=== PATIENT | female | born 1980 | race Two or more races ===

== ENCOUNTER 2022-08-30 12:00 | Outpatient (REF) | payer MEDICAID, SELFPAY ==
--- NOTE | ~2022-08-30 | XR_ITS ---
EXAMINATION: XR CHEST CLINICAL INFORMATION: Persistent cough COMPARISON: None TECHNIQUE: 2 views of the chest were obtained. FINDINGS: Lungs are clear. No focal consolidation or mass. Normal pulmonary vascularity. No pleural effusion or pneumothorax. Normal heart size. No acute osseous abnormality. XR/XR chest 2V IMPRESSION: No acute pulmonary disease.
== END 2022-08-30 12:01 | disposition home or self-care (01) ==
LOC: HO.XRAY 12:00
PROVIDERS: PCP Registered Nurse; Visit Provider Registered Nurse
DX: R05.8 Other specified cough (principal)
CPT/HCPCS: 71046

== ENCOUNTER 2022-09-10 21:11 | Emergency (ER) | payer MEDICAID, SELFPAY ==
--- NOTE | 2022-09-10 | ECG_ITS ---
Test Reason : CHEST PAIN Blood Pressure : / mmHG Vent. Rate : 090 BPM Atrial Rate : 090 BPM P-R Int : 132 ms QRS Dur : 082 ms QT Int : 344 ms P-R-T Axes : 014 023 000 degrees QTc Int : 420 ms Normal sinus rhythm Normal ECG No previous ECGs available Referred By: Generic ED Physician Electronically Signed By:EBONI BROOKS MD
--- NOTE | ~2022-09-10 | XR_ITS ---
EXAMINATION: XR CHEST CLINICAL INFORMATION: Evaluate for pneumonia COMPARISON: 08/30/2022 TECHNIQUE: Frontal view of the chest was obtained. FINDINGS: No acute finding. No infiltrate. No effusion. The cardiac silhouette is within normal limits. The hilar structures do not appear pathologically enlarged. There is no effusion. XR/XR chest 1V IMPRESSION: No acute finding.
[2022-09-10 21:13] VITALS: BP 114/67; PULSE 95; RESP 20; TEMP 36.1; O2SAT 98; BMI 38.2
[2022-09-10 21:39] LABS: MANUAL DIFF FLAG NO
[2022-09-10 21:40] LABS: Basophils Absolute Auto 0.1 X10*3/uL (0.0-0.2); Basophils Percent Auto 0.7 % (0-2); Eosinophils Absolute Auto 0.4 X10*3/uL (0.0-0.4); Eosinophils Percent Auto 3.5 % (0-4); Hematocrit 38.6 % (37.0-47.0); Hemoglobin 13.5 g/dl (12.0-16.0); Imm Gran Abs Auto 0.02 X10*3/uL (0.00-0.03); Imm Gran Pct Auto 0.2 % (0.0-0.4); Lymphocytes Absolute Auto 3.7 X10*3/uL (1.2-4.9); Lymphocytes Percent Auto 34.6 % (20-40); Mean Corpuscular Hemoglobin 29.2 pg (27.0-33.0); Mean Corpuscular Volume 83.4 fL (80.0-98.0); Mean Platelet Volume 9.3 fL (9.4-12.3); Monocytes Percent Auto 8.9 % (2-11); Neutrophils Absolute Auto 5.6 x10*3/uL (2.0-8.3); Neutrophils Percent Auto 52.1 % (45-73); Platelet Count 357 X10*3/uL (160-400); Red Blood Count 4.63 X10*6/uL (4.20-5.50); Red Cell Distribution Width 13.1 % (11.0-16.0); White Blood Count 10.7 X10*3/uL (4.8-10.8)
[2022-09-10 21:44] VITALS: PULSE 96; RESP 17; O2SAT 97
--- NOTE | 2022-09-10 21:45 | PC.NURSE ---
pt resting on stretcher at this time, pt reports having a non-productive cough for two weeks and an asthma exacerbation
--- NOTE | 2022-09-10 21:50 | ED.ASTHMA ---
HPI - Asthma General Chief Complaint: Asthma Stated Complaint: coughing/chest pain Time Seen by Provider: 09/10/22 21:38 Source: patient Mode of arrival: ambulatory Limitations: no limitations History of Present Illness HPI Narrative: Patient comes to the emergency room complaining of cough. Patient states that she is asthmatic. Patient states that she used her inhaler prior to arrival. Patient moved 2 weeks ago from [place]. Patient needs a prescription for albuterol. Patient complaining of chest pain with coughing Related Data Previous Rx's Medication Instructions Recorded albuterol sulfate 90 mcg/actuation 2 puff inhalation QID PRN 09/10/22 aerosol inhaler shortness of breath or wheezing #8.5 grams benzonatate 100 mg capsule 100 mg PO TID PRN cough #10 caps 09/10/22 prednisone 50 mg tablet 50 mg PO DAILY #4 tabs 09/10/22 Allergies Allergy/AdvReac Type Severity Reaction Status Date / Time aspirin [ASA] Allergy Swelling Verified 09/10/22 21:19 kiwi Allergy Rash Verified 09/10/22 21:19 Penicillins Allergy Swelling Verified 09/10/22 21:19 shrimp Allergy Swelling Verified 09/10/22 21:19 Sulfa (Sulfonamide Allergy Rash Verified 09/10/22 21:19 Antibiotics) Review of Systems Review of Systems: Constitutional : No Weight loss, No Fever, No Chills, No Night Sweats, No Fatigue, No Malaise ENT/Mouth : No Hearing loss, No Ear Pain, No Nasal Congestion, No Sinus Pain, No Hoarseness, No sore throat, No Rhinorrhea, No Swallowing Difficulty Eyes: No Eye Pain, No Swelling, No Redness, No Foreign Body, No Discharge, No Vision Changes Cardiovascular : Complaining of chest pain with coughing. Denies palpitations, no orthopnea, no lower extremity edema Respiratory : Complaining of cough for 2 weeks, wheezing, intermittent shortness of breath Gastrointestinal : No Nausea, No Vomiting, No Diarrhea, No Constipation, No abdominal Pain, No Hematochezia, No Melena Genitourinary : no irregular bleeding, No Dysuria, No Urinary Frequency, No Hematuria, No Urinary Incontinence, No Urgency, No Flank Pain, No Urinary Flow Changes, No Hesitancy Musculoskeletal : No joint pain, No Myalgias, No Joint Swelling Skin : No Skin Lesions, No rash Neuro : No Weakness, No Numbness, No Paresthesias, No Loss of Consciousness, No Dizziness, No Headache Psych : No Anxiety/Panic, No Depression, No SI/HI/AH/VH, No Social Issues, Heme/Lymph: No Bruising, No Bleeding,No Lymphadenopathy Endocrine : No Polyuria, No Polydipsia, No Temperature Intolerance [facility] Past Medical History Medical History (Updated 09/10/22 @ 23:16 by Deidre Saldivar MD) Asthma Social History Social History Advance Directives: No Advance Directives Information Provided: No Physical Exam Vital Signs: Vital Signs: Last Vital Signs Temp 97.8 F 09/10/22 22:55 Pulse 83 09/10/22 22:55 Resp 18 09/10/22 22:55 BP 102/55 L 09/10/22 22:55 Pulse Ox 98 09/10/22 22:55 O2 Del Method 09/10/22 22:55 BMI result Body Mass Index 38.2 Const: Other: Appearance: Alert. Oriented X3. No acute distress. Well appearing Eyes: Pupils equal, round and reactive to light. ENT: Pharynx normal. Neck: Normal inspection. Neck supple. No lymph nodes noted. No crepitus CVS: Normal heart rate and rhythm. Pulses normal. Normal S1 and S2 Respiratory: No respiratory distress. Breath sounds normal. No Wheezing. No rales , coughs with deep breaths Abdomen: Soft and nontender. No rigidity. No distention. Skin: Skin warm and dry. Normal skin color. Normal skin turgor. Extremities: No lower extremity edema. No Lacerations. No Rash Neuro: Oriented X 3. No motor deficit. No sensory deficit. Moving all extremities. No slurred speech. CN 2 through 12 grossly intact Psych: calm, cooperative, normal affect Course Course Course Narrative: Patient receiving 1 dose of p.o. prednisone and Tessalon Perle -patient's labs and checks x-ray are unremarkable. Patient not wheezing, oxygen saturation 98% on room air. Medications Administered Discontinued Medications Generic Name Dose Route Start Last Admin Trade Name Freq PRN Reason Stop Dose Admin Benzonatate 100 mg 09/10/22 21:48 09/10/22 21:54 Benzonatate 100 Mg Capsule PO 09/10/22 21:49 100 mg ONCE ONE Administration Prednisone 60 mg 09/10/22 21:48 09/10/22 21:54 Prednisone 20 Mg Tablet PO 09/10/22 21:49 60 mg ONCE ONE Administration Medical Decision Making Medical Decision Making [facility] Narrative: Patient has a viral URI exacerbating her asthma. Patient tested negative for COVID and influenza. Differential Diagnosis Differential Diagnoses: The differential diagnosis associated with the presentation includes (Viral URI, COVID, influenza, asthma exacerbation) Lab Data [facility] Lab Attestation statement: I reviewed the patient's lab results. 09/10/22 21:33 09/10/22 21:33 Labs: Lab Results 09/10/22 09/10/22 09/10/22 Range/Units 21:33 21:33 21:33 WBC 10.7 (4.8-10.8) X10*3/uL RBC 4.63 (4.20-5.50) X10*6/uL Hgb 13.5 (12.0-16.0) g/dl Hct 38.6 (37.0-47.0) % MCV 83.4 (80.0-98.0) fL MCH 29.2 (27.0-33.0) pg MCHC 35.0 (31.0-35.0) g/dl RDW 13.1 (11.0-16.0) % Plt Count 357 (160-400) X10*3/uL MPV 9.3 L (9.4-12.3) fL Immature Gran % (Auto) 0.2 (0.0-0.4) % Neut % (Auto) 52.1 (45-73) % Lymph % (Auto) 34.6 (20-40) % Lamb % (Auto) 8.9 (2-11) % Eos % (Auto) 3.5 (0-4) % Baso % (Auto) 0.7 (0-2) % Lymph # (Auto) 3.7 (1.2-4.9) X10*3/uL Lamb # (Auto) 1.0 (0.1-1.2) X10*3/uL Eos # (Auto) 0.4 (0.0-0.4) X10*3/uL Baso # (Auto) 0.1 (0.0-0.2) X10*3/uL Abs Immat Gran (auto) 0.02 (0.00-0.03) X10*3/uL Absolute Neuts (auto) 5.6 (2.0-8.3) x10*3/uL Absolute Nucleated RBC 0.000 (0.0-0.012) X10*3/uL Nucleated RBC % (auto) 0.0 (0.0-0.2) /100WBC Sodium (135-145) mmol/L Potassium (3.3-5.1) mmol/L Chloride (96-108) mmol/L Carbon Dioxide (22-29) mmol/L Anion Gap (12-20) BUN (9-16) mg/dL Creatinine (0.5-1.4) mg/dL Estim Creat Clear Calc Estimated GFR Random Glucose (60-115) mg/dL Calcium (8.4-10.2) mg/dL Troponin I High Sens (<3.5-17.0) ng/L COVID-19 ([facility]) Negative (Negative) COVID-19 Clin Com See Note Influenza Type A ([facility]) Negative (Negative) Influenza Type B ([facility]) Negative (Negative) Influenza A & B Note See Note 09/10/22 09/10/22 Range/Units 21:33 21:34 WBC (4.8-10.8) X10*3/uL RBC (4.20-5.50) X10*6/uL Hgb (12.0-16.0) g/dl Hct (37.0-47.0) % MCV (80.0-98.0) fL MCH (27.0-33.0) pg MCHC (31.0-35.0) g/dl RDW (11.0-16.0) % Plt Count (160-400) X10*3/uL MPV (9.4-12.3) fL Immature Gran % (Auto) (0.0-0.4) % Neut % (Auto) (45-73) % Lymph % (Auto) (20-40) % Lamb % (Auto) (2-11) % Eos % (Auto) (0-4) % Baso % (Auto) (0-2) % Lymph # (Auto) (1.2-4.9) X10*3/uL Lamb # (Auto) (0.1-1.2) X10*3/uL Eos # (Auto) (0.0-0.4) X10*3/uL Baso # (Auto) (0.0-0.2) X10*3/uL Abs Immat Gran (auto) (0.00-0.03) X10*3/uL Absolute Neuts (auto) (2.0-8.3) x10*3/uL Absolute Nucleated RBC (0.0-0.012) X10*3/uL Nucleated RBC % (auto) (0.0-0.2) /100WBC Sodium 139 (135-145) mmol/L Potassium 3.6 (3.3-5.1) mmol/L Chloride 101 (96-108) mmol/L Carbon Dioxide 28 (22-29) mmol/L Anion Gap 14 (12-20) BUN 7 L (9-16) mg/dL Creatinine 0.81 (0.5-1.4) mg/dL Estim Creat Clear Calc 88.8 Estimated GFR > 60 Random Glucose 274 H (60-115) mg/dL Calcium 9.6 (8.4-10.2) mg/dL Troponin I High Sens < 3.5 (<3.5-17.0) ng/L COVID-19 ([facility]) (Negative) COVID-19 Clin Com Influenza Type A ([facility]) (Negative) Influenza Type B ([facility]) (Negative) Influenza A & B Note Independent Interpretation I performed an independent interpretation of an: Plain X-Ray (My interpretation of chest x-ray: Unremarkable) Radiology Impression Discussion of test interpretation with radiology: I have reviewed the radiologist's reading. Radiologist Impression: FINDINGS: No acute finding. No infiltrate. No effusion. The cardiac silhouette is within normal limits. The hilar structures do not appear pathologically enlarged. There is no effusion. XR/XR chest 1V IMPRESSION: No acute finding. ? Discharge Plan Discharge Clinical Impression: Viral URI, Asthma Patient Disposition: Home, Self-Care Instructions: Asthma (ED) Additional Instructions: Please follow-up with your primary care physician tomorrow. If you have any worsening or new symptoms, please return to the emergency room or call 911 Prescriptions: New albuterol sulfate 90 mcg/actuation HFA aerosol inhaler 2 puff inhalation QID PRN (Reason: shortness of breath or wheezing) Qty: 8.5 0RF prednisone 50 mg tablet 50 mg PO DAILY Qty: 4 0RF benzonatate 100 mg capsule 100 mg PO TID PRN (Reason: cough) Qty: 10 0RF
[2022-09-10 21:54] LABS: Anion Gap 14 (12-20); Blood Urea Nitrogen 7 mg/dL (9-16); Calcium 9.6 mg/dL (8.4-10.2); Carbon Dioxide 28 mmol/L (22-29); Chloride 101 mmol/L (96-108); Creatinine Clr Calc Pharmacy 88.8; Estimated Glomerular Filt Rate > 60; Glucose Random 274 mg/dL (60-115); Potassium 3.6 mmol/L (3.3-5.1); Sodium 139 mmol/L (135-145)
[2022-09-10] MEDS: Benzonatate 100 MG CAPSULE PO (21:54)
[2022-09-10] MEDS: predniSONE 20 MG TABLET 60 MG PO (21:54)
[2022-09-10 21:55] LABS: COVID-19 Test Negative (Negative); IDNOW Serial# 55D5AD1C
[2022-09-10 22:03] LABS: Troponin-I High Sensitivity < 3.5 ng/L (<3.5-17.0)
[2022-09-10 22:42] LABS: IDNOW Serial# 16C4AD1C; Influenza A Negative (Negative); Influenza B2 Negative (Negative)
[2022-09-10 22:55] VITALS: BP 102/55; PULSE 83; RESP 18; TEMP 36.6; O2SAT 98
== END 2022-09-10 23:38 | disposition home or self-care (01) ==
PROVIDERS: Emergency Provider Emergency Medicine
DX: J45.909 Unspecified asthma, uncomplicated (principal); J06.9 Acute upper respiratory infection, unspecified; R05.9 Cough, unspecified; R07.89 Other chest pain; Z20.822 Contact with and (suspected) exposure to COVID-19; Z20.828 Contact with and (suspected) exposure to other viral communicable diseases; Z79.899 Other long term (current) drug therapy
CPT/HCPCS: 36415; 71045; 80048; 84484; 85025; 87502; 87635; 93005; 99284

== ENCOUNTER 2023-02-03 14:28 | Emergency (ER) | payer MEDICAID, SELFPAY ==
--- NOTE | ~2023-02-03 | CT_ITS ---
EXAMINATION: CT ABDOMEN AND PELVIS WITHOUT CONTRAST CLINICAL INFORMATION: Lower abdominal pain. Rule out colitis. COMPARISON: None available. TECHNIQUE: Multidetector volumetric imaging was performed from the superior aspect of the liver through the pubic symphysis. Sagittal and coronal reformatted images were obtained on the technologist's workstation. This CT examination was performed using dose optimization techniques as appropriate, variously including the following: *Automated exposure control *Adjustment of mA and/or kV according to patient size (this includes techniques or standardized protocols for targeted exams where dose is matched to indication/reason for exam; i.e. extremities or head) *Use of iterative reconstruction technique DLP: 474 mGy-cm FINDINGS: LUNG BASES: The visualized lung bases are unremarkable. LIVER, GALLBLADDER, AND BILIARY TREE: The liver is normal in size, shape, and attenuation. No focal hepatic lesion or biliary ductal dilatation is present. The gallbladder is unremarkable with no evidence of radiopaque gallstones, gallbladder wall thickening, or obvious pericholecystic inflammatory changes. PANCREAS: Unremarkable. SPLEEN: Unremarkable. ADRENAL GLANDS: Unremarkable. KIDNEYS AND URETERS: The kidneys are normal in size, shape, and attenuation. No hydronephrosis, hydroureter, or calculi seen. No perinephric stranding. BLADDER: Underdistended however grossly unremarkable. GASTROINTESTINAL TRACT: The stomach is partially distended and grossly unremarkable. No abnormal small bowel dilatation. An appendix is not clearly visualized however there are no inflammatory changes in the expected location of the appendix. Colon is normal in caliber. There is no evidence of colonic wall thickening or pericolonic fat stranding. Moderate to large stool burden is noted in the colon. PERITONEAL CAVITY: There is no evidence of free intraperitoneal air or fluid. ABDOMINAL WALL: No significant hernia is appreciated. LYMPH NODES: No evidence of pathologically enlarged lymph nodes. VASCULAR: The aortoiliac vessels are normal in caliber. PELVIC VISCERA: Unremarkable CT appearance of the uterus and ovaries/adnexa. The uterus is mildly deviated to the right. Small phleboliths are noted in the pelvis OSSEOUS STRUCTURES: No acute or suspicious osseous lesion is noted. Small sclerotic density in the left humeral head posteromedially has nonaggressive appearance and likely represents a bone island. CT/CT abdomen pelvis wo IV con IMPRESSION: No CT evidence of colitis. No evidence of abnormal bowel dilatation or bowel obstruction. Moderate to large stool burden in the colon. Fleischner guidelines were followed.
[2023-02-03 15:22] VITALS: BP 129/78; PULSE 78; RESP 18; TEMP 36.9; O2SAT 98; BMI 24.2
--- NOTE | 2023-02-03 15:28 | ED_ITS ---
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 Pain started about 12 hours ago when she woke up from sleep this morning, the pain has been constant since morning mostly in the epigastric area but also patient is complaining of constant pain in her lower abdomen, associated with nonbloody vomiting x3, patient had a normal bowel movement this morning with no blood in the stool or black stool, no dysuria, no frequency urination, no blood in the urine. Patient declined any past history of intra-abdominal surgery. Declined any history of alcohol abuse. Related Data Previous Rx's Medication Instructions Recorded albuterol sulfate 90 mcg/actuation 2 puff inhalation QID PRN 09/10/22 aerosol inhaler shortness of breath or wheezing #8.5 grams benzonatate 100 mg capsule 100 mg PO TID PRN cough #10 caps 09/10/22 prednisone 50 mg tablet 50 mg PO DAILY #4 tabs 09/10/22 omeprazole 40 mg capsule,delayed 40 mg PO DAILY #20 caps 02/04/23 release polyethylene glycol 3350 17 17 g PO DAILY #119 grams 02/04/23 gram/dose oral powder (Miralax) Allergies Allergy/AdvReac Type Severity Reaction Status Date / Time aspirin [ASA] Allergy Swelling Verified 09/10/22 21:19 kiwi Allergy Rash Verified 09/10/22 21:19 Penicillins Allergy Swelling Verified 09/10/22 21:19 shrimp Allergy Swelling Verified 09/10/22 21:19 Sulfa (Sulfonamide Allergy Rash Verified 09/10/22 21:19 Antibiotics) Review of Systems Review of Systems All other systems are reviewed and are negative Constitutional: Reports as per HPI and Reports no additional constitutional complaints Eyes: Reports as per HPI and Reports no additional eye complaints Reports system reviewed and no additional complaints, except as documented Cardiovascular: Reports as per HPI and Reports no additional cardiovascular complaints Respiratory: Reports as per HPI and Reports no additional respiratory complaints Gastrointestinal: Reports as per HPI and Reports no additional gastrointestinal complaints Genitourinary: Reports no additional female genitourinary complaints Musculoskeletal: Reports no additional musculoskeletal complaints Skin/Breast: Reports system reviewed and no additional complaints, except as docu Psychiatric: Reports no additional psychiatric complaints Endocrine: Reports no additional endocrine complaints Hematologic/Lymphatic: Reports no additional hematologic/lymphatic complaints Allergic/Immunologic: Reports no additional allergic/immunologic complaints Reports system reviewed and no additional complaints, except as documented and Reports Abnormal speech present [facility] Past Medical History Medical History Asthma Social History Social History Advance Directives: No Advance Directives Information Provided: Yes Physical Exam ED Vital Signs: Vital Signs - 24 hr 02/03/23 15:22 02/03/23 22:29 Temperature 98.4 F 98.2 F Pulse Rate 78 65 Respiratory Rate 18 18 Blood Pressure 129/78 124/64 Pulse Oximetry 98 99 Oxygen Delivery Method Room Air Room Air BMI result Body Mass Index 24.2 Vital signs have been reviewed as appeared to be correct. Blood pressure normal. Heart rate normal. Respiration rate normal. Temperature normal. Oxygen saturation normal. Appearance: Alert. Oriented X3. No acute distress. Head: Normal external exam. Normocephalic. Atraumatic. No Kelly signs noted. No raccoon eyes noted Eyes: PERRLA. EOMI. Conjunctiva and sclera normal. Eyelids normal. ENT: TM's Normal. Pharynx normal. Uvula midline. Moist mucous membranes. No trismus noted. No drooling noted. No muffled voice noted. Neck: Normal inspection. Neck supple. FROM. No adenopathy. Thyroid Normal. No meningeal signs. No neck mass noted. CVS: Normal heart rate and rhythm. Heart sound normal. No murmurs noted. Pulses normal throughout. Respiratory: No respiratory distress. Painless inspiration. Breath sounds normal. No wheezes/rales/rhonchi noted. Chest nontender. No accessory muscle usage noted or decreased air movement noted. Abdomen: Soft, epigastric tenderness, no rebound tenderness, no guarding. Bowel sounds normal in all 4 quadrants. No distention noted. No organomegaly noted. No visible injury noted. Back: No CVA tenderness. Full range of motion noted. Skin: Skin warm and dry. Normal skin color. Normal skin turgor. No rashes/lesions/lacerations noted. Extremities: No lower extremity edema. Extremities exhibit normal range of motion. Extremities nontender. Neuro: Oriented X 3. Cranial nerve exam: II-XII are grossly intact No motor deficit. No sensory deficit. Reflexes normal. Course Course Course Narrative: RME - 48 yo Divehi speaking female with history of anxiety and depression who presents to the ER for evaluation of nausea and vomiting x3 that started this morning along with epigastric pain. No diarrhea. She reports subjective fever and chills today along with generalized weakness. Abd very soft with mild diffuse tenderness to deep palpation, no rebound or guarding. Plan: basic labs, anti-emetics, PO trial Medical Decision Making Medical Decision Making [facility] Narrative: 42-year-old female came in for evaluation of abdominal pain, patient found with mild leukocytosis due to acute gastritis, CT did not clearly visualize appendix patient's tenderness is localized to the epigastric area. Differential Diagnosis Differential Diagnoses: The differential diagnosis associated with the presentation includes (Acute appendicitis, colitis, diverticulitis, complicated hernia, pancreatitis, cholecystitis, gastritis, constipation, severe anemia, electrolyte abnormalities.) Lab Data [facility] Lab Attestation statement: I reviewed the patient's lab results. 02/03/23 16:02 02/03/23 16:02 Labs: Lab Results 02/03/23 02/03/23 02/03/23 Range/Units 16:00 16:00 16:02 WBC 13.4 H (4.8-10.8) X10*3/uL RBC 4.71 (4.20-5.50) X10*6/uL Hgb 13.7 (12.0-16.0) g/dl Hct 39.8 (37.0-47.0) % MCV 84.5 (80.0-98.0) fL MCH 29.1 (27.0-33.0) pg MCHC 34.4 (31.0-35.0) g/dl RDW 13.2 (11.0-16.0) % Plt Count 328 (160-400) X10*3/uL MPV 9.4 (9.4-12.3) fL Immature Gran % (Auto) 0.4 (0.0-0.4) % Neut % (Auto) 60.3 (45-73) % Lymph % (Auto) 25.2 (20-40) % Mcclain % (Auto) 5.6 (2-11) % Eos % (Auto) 7.8 H (0-4) % Baso % (Auto) 0.7 (0-2) % Lymph # (Auto) 3.4 (1.2-4.9) X10*3/uL Mcclain # (Auto) 0.8 (0.1-1.2) X10*3/uL Eos # (Auto) 1.1 H (0.0-0.4) X10*3/uL Baso # (Auto) 0.1 (0.0-0.2) X10*3/uL Abs Immat Gran (auto) 0.05 H (0.00-0.03) X10*3/uL Absolute Neuts (auto) 8.1 (2.0-8.3) x10*3/uL Absolute Nucleated RBC 0.000 (0.0-0.012) X10*3/uL Nucleated RBC % (auto) 0.0 (0.0-0.2) /100WBC Sodium (135-145) mmol/L Potassium (3.3-5.1) mmol/L Chloride (96-108) mmol/L Carbon Dioxide (22-29) mmol/L Anion Gap (12-20) BUN (9-16) mg/dL Creatinine (0.5-1.4) mg/dL Estim Creat Clear Calc Estimated GFR Random Glucose (60-115) mg/dL Calcium (8.4-10.2) mg/dL Magnesium (1.6-2.6) mg/dL Total Bilirubin (0.0-1.0) mg/dL Direct Bilirubin (0.0-0.5) mg/dL AST (5-31) U/L ALT (0-31) U/L Alkaline Phosphatase (39-117) U/L Total Protein (6.5-8.0) g/dL Albumin (3.5-5.0) g/dL Lipase (8-78) U/L Urine Color Yellow Urine Appearance Clear Urine pH 6.0 (5.0-9.0) Ur Specific Vermillion >= 1.030 H (1.005-1.025) Urine Protein Negative (Neg-Trace) mg/dL Urine Glucose (UA) >=1000 H (Negative) mg/dL Urine Ketones Negative (Negative) mg/dL Urine Blood Trace H (Negative) Urine Nitrite Negative (Negative) Ur Leukocyte Esterase Small (1+) H (Negative) Urine RBC 0-2 (0-2) /HPF Urine WBC 21-50 H (0-5) /HPF Ur Squamous Epith Cells 6-10 (0-2) /HPF Urine Bacteria 2+ (None Seen) Hyaline Casts 0-2 (0-2) /LPF Urine Test NEGATIVE (NEGATIVE) 02/03/23 Range/Units 16:02 WBC (4.8-10.8) X10*3/uL RBC (4.20-5.50) X10*6/uL Hgb (12.0-16.0) g/dl Hct (37.0-47.0) % MCV (80.0-98.0) fL MCH (27.0-33.0) pg MCHC (31.0-35.0) g/dl RDW (11.0-16.0) % Plt Count (160-400) X10*3/uL MPV (9.4-12.3) fL Immature Gran % (Auto) (0.0-0.4) % Neut % (Auto) (45-73) % Lymph % (Auto) (20-40) % Mcclain % (Auto) (2-11) % Eos % (Auto) (0-4) % Baso % (Auto) (0-2) % Lymph # (Auto) (1.2-4.9) X10*3/uL Mcclain # (Auto) (0.1-1.2) X10*3/uL Eos # (Auto) (0.0-0.4) X10*3/uL Baso # (Auto) (0.0-0.2) X10*3/uL Abs Immat Gran (auto) (0.00-0.03) X10*3/uL Absolute Neuts (auto) (2.0-8.3) x10*3/uL Absolute Nucleated RBC (0.0-0.012) X10*3/uL Nucleated RBC % (auto) (0.0-0.2) /100WBC Sodium 142 (135-145) mmol/L Potassium 4.1 (3.3-5.1) mmol/L Chloride 107 (96-108) mmol/L Carbon Dioxide 26 (22-29) mmol/L Anion Gap 13 (12-20) BUN 17 H (9-16) mg/dL Creatinine 0.65 (0.5-1.4) mg/dL Estim Creat Clear Calc 86.8 Estimated GFR > 60 Random Glucose 179 H (60-115) mg/dL Calcium 10.0 (8.4-10.2) mg/dL Magnesium 2.0 (1.6-2.6) mg/dL Total Bilirubin 0.3 (0.0-1.0) mg/dL Direct Bilirubin 0.1 (0.0-0.5) mg/dL AST 14 (5-31) U/L ALT 12 (0-31) U/L Alkaline Phosphatase 93 (39-117) U/L Total Protein 6.8 (6.5-8.0) g/dL Albumin 4.1 (3.5-5.0) g/dL Lipase 15 (8-78) U/L Urine Color Urine Appearance Urine pH (5.0-9.0) Ur Specific Vermillion (1.005-1.025) Urine Protein (Neg-Trace) mg/dL Urine Glucose (UA) (Negative) mg/dL Urine Ketones (Negative) mg/dL Urine Blood (Negative) Urine Nitrite (Negative) Ur Leukocyte Esterase (Negative) Urine RBC (0-2) /HPF Urine WBC (0-5) /HPF Ur Squamous Epith Cells (0-2) /HPF Urine Bacteria (None Seen) Hyaline Casts (0-2) /LPF Urine Test (NEGATIVE) Independent Interpretation I performed an independent interpretation of an: CT Scan (Abdomen and pelvis: No acute appendicitis, constipation.) Radiology Impression Discussion of test interpretation with radiology: I have reviewed the radiolog ist's reading. Medications Administered Discontinued Medications Generic Name Dose Route Start Last Admin Trade Name Freq PRN Reason Stop Dose Admin Al Hydroxide/Mg Hydroxide 30 ml 02/03/23 22:46 02/04/23 00:06 Magnesium Hydrox/Alum Hydrox 30 Ml Oral.Susp PO 02/03/23 22:47 30 ml ONCE ONE Administration Famotidine 20 mg 02/03/23 22:46 02/04/23 00:11 Famotidine/Pf 20 Mg/2 Ml Vial IVPUSH 02/03/23 22:47 20 mg ONCE ONE Administration Ondansetron HCl 4 mg 02/03/23 22:46 02/04/23 00:11 Ondansetron Hcl 4 Mg/2 Ml Vial IVPUSH 02/03/23 22:47 4 mg ONCE ONE Administration Discharge Plan Discharge Clinical Impression: Constipation, Gastritis Patient Disposition: Home, Self-Care Instructions: Gastritis (ED) Prescriptions: New omeprazole 40 mg capsule,delayed release(DR/EC) 40 mg PO DAILY Qty: 20 0RF polyethylene glycol 3350 [Miralax] 17 gram/dose powder 17 g PO DAILY Qty: 119 0RF No Action albuterol sulfate 90 mcg/actuation HFA aerosol inhaler 2 puff inhalation QID PRN (Reason: shortness of breath or wheezing) Qty: 8.5 0RF prednisone 50 mg tablet 50 mg PO DAILY Qty: 4 0RF benzonatate 100 mg capsule 100 mg PO TID PRN (Reason: cough) Qty: 10 0RF Referrals: Tiarra Lobo MD [Physician] - Juana Christine MD [Primary Care Provider] -
[2023-02-03 16:06] LABS: MANUAL DIFF FLAG NO
[2023-02-03 16:08] LABS: Basophils Absolute Auto 0.1 X10*3/uL (0.0-0.2); Basophils Percent Auto 0.7 % (0-2); Eosinophils Absolute Auto 1.1 X10*3/uL (0.0-0.4); Eosinophils Percent Auto 7.8 % (0-4); Hematocrit 39.8 % (37.0-47.0); Hemoglobin 13.7 g/dl (12.0-16.0); Imm Gran Abs Auto 0.05 X10*3/uL (0.00-0.03); Imm Gran Pct Auto 0.4 % (0.0-0.4); Lymphocytes Absolute Auto 3.4 X10*3/uL (1.2-4.9); Lymphocytes Percent Auto 25.2 % (20-40); Mean Corpuscular HGB Conc 34.4 g/dl (31.0-35.0); Mean Corpuscular Hemoglobin 29.1 pg (27.0-33.0); Mean Corpuscular Volume 84.5 fL (80.0-98.0); Mean Platelet Volume 9.4 fL (9.4-12.3); Monocytes Absolute Auto 0.8 X10*3/uL (0.1-1.2); Monocytes Percent Auto 5.6 % (2-11); Neutrophils Absolute Auto 8.1 x10*3/uL (2.0-8.3); Neutrophils Percent Auto 60.3 % (45-73); Platelet Count 328 X10*3/uL (160-400); Red Blood Count 4.71 X10*6/uL (4.20-5.50); Red Cell Distribution Width 13.2 % (11.0-16.0); White Blood Count 13.4 X10*3/uL (4.8-10.8)
[2023-02-03 16:09] LABS: Appearance Urine Clear; Color Urine Yellow; Glucose Urine UA >=1000 mg/dL (Negative); Leukocyte Esterase Urine Small (1+) (Negative); Nitrite Urine Negative (Negative); Specific Gravity - Urine >= 1.030 (1.005-1.025); UMIC TRIGGER UACC YES; UPreg QC Valid YES; Urine Blood Trace (Negative); Urine Ketones Negative (Negative); Urine Pregnancy NEGATIVE (NEGATIVE); Urine Protein Negative (Neg-Trace)
[2023-02-03 16:14] LABS: Bacteria Urine 2+ (None Seen); Hyaline Casts Urine 0-2 /LPF (0-2); RBC Urine 0-2 /HPF (0-2); UACC Culture Trigger YES; WBC Urine 21-50 /HPF (0-5)
[2023-02-03 16:23] LABS: Alanine Aminotransferase 12 U/L (0-31); Albumin Level 4.1 g/dL (3.5-5.0); Alkaline Phosphatase 93 U/L (39-117); Anion Gap 13 (12-20); Aspartate Amino Transferase 14 U/L (5-31); Bilirubin Direct 0.1 mg/dL (0.0-0.5); Bilirubin Total 0.3 mg/dL (0.0-1.0); Blood Urea Nitrogen 17 mg/dL (9-16); Carbon Dioxide 26 mmol/L (22-29); Chloride 107 mmol/L (96-108); Creatinine Clr Calc Pharmacy 86.8; Estimated Glomerular Filt Rate > 60; Glucose Random 179 mg/dL (60-115); Lipase 15 U/L (8-78); Potassium 4.1 mmol/L (3.3-5.1); Sodium 142 mmol/L (135-145); Total Protein 6.8 g/dL (6.5-8.0)
[2023-02-03 22:29] VITALS: BP 124/64; PULSE 65; RESP 18; TEMP 36.8; O2SAT 99
[2023-02-04] VITALS: BP 120/63; PULSE 66; RESP 16
[2023-02-04] MEDS: Magnesium Hydrox/Alum Hydrox 30 ML ORAL.SUSP PO (00:06)
[2023-02-04] MEDS: Famotidine/PF 20 MG/2 ML VIAL IVPUSH (00:11)
[2023-02-04] MEDS: ondansetron HCL 4 MG/2 ML VIAL IVPUSH (00:11)
== END 2023-02-04 01:43 | disposition home or self-care (01) ==
PROVIDERS: Physician Assistant; Emergency Provider Emergency Medicine; PCP Internal Medicine
DX: K29.70 Gastritis, unspecified, without bleeding (principal); K59.00 Constipation, unspecified; R11.2 Nausea with vomiting, unspecified; R10.13 Epigastric pain
CPT/HCPCS: 36415; 74176; 80048; 80076; 81001; 81025; 83690; 83735; 85025; 87086; 87147; 96374; 96375; 99283; 99284; J2405

== ENCOUNTER 2023-05-25 16:33 | Outpatient (REF) | payer MEDICAID, SELFPAY ==
[2023-05-25 17:31] LABS: Appearance Urine Clear; Color Urine Yellow; Glucose Urine UA >=1000 mg/dL (Negative); Leukocyte Esterase Urine Trace (Negative); Nitrite Urine Negative (Negative); Specific Gravity - Urine >= 1.030 (1.005-1.025); UMIC TRIGGER UA YES; Urine Blood Moderate (2+) (Negative); Urine Ketones Trace mg/dL (Negative); Urine Protein Negative (Neg-Trace)
[2023-05-25 18:02] LABS: Bacteria Urine 2+ (None Seen); Hyaline Casts Urine 0-2 /LPF (0-2); RBC Urine 0-2 /HPF (0-2)
== END 2023-05-25 16:34 | disposition home or self-care (01) ==
LOC: HO.HHCL 16:33
PROVIDERS: Visit Provider Nurse Practitioner Family
DX: E11.9 Type 2 diabetes mellitus without complications (principal)
CPT/HCPCS: 81001

== ENCOUNTER 2023-07-04 15:00 | Outpatient (REF) | payer MEDICAID, SELFPAY ==
[2023-07-04 16:44] LABS: HCG Quantitative < 2 mIU/mL
[2023-07-04 16:53] LABS: Creatinine Urine 14.11 mg/dL; Microalbumin Urine < 5.0 mg/L
== END 2023-07-04 15:01 | disposition home or self-care (01) ==
LOC: HO.HHCL 15:00
PROVIDERS: Visit Provider Nurse Practitioner Family
DX: E11.9 Type 2 diabetes mellitus without complications (principal); N92.6 Irregular menstruation, unspecified
CPT/HCPCS: 36415; 82570; 84702

== ENCOUNTER → 2023-08-02 12:15 | Outpatient (BNV) | payer MEDICAID, SELFPAY | PROVIDERS: PCP Nurse Practitioner Family; Visit Provider Radiology Diagnostic Radiology | DX: Z12.31 Encounter for screening mammogram for malignant neoplasm of breast (principal) | CPT/HCPCS: 77063; 77067 ==

== ENCOUNTER 2023-08-02 12:44 | Outpatient (REF) | payer MEDICAID, SELFPAY ==
--- NOTE | ~2023-08-02 | MM_ITS ---
EXAMINATION: MM SCREENING DIGITAL BREAST TOMOSYNTHESIS, BILATERAL CLINICAL INFORMATION: Screening. Asymptomatic. COMPARISON: Mammography: Baseline exam. TECHNIQUE: Digital breast tomosynthesis is performed in both the craniocaudal and mediolateral oblique views along with computer-aided detection (CAD). Synthesized 2D images are generated from the tomosynthesis. An extra left MLO was obtained. FINDINGS: There are scattered areas of fibroglandular density (ACR BI-RADS breast composition Category b). There are no suspicious masses, suspicious grouped calcifications, or areas of architectural distortion in either breast. The parenchymal pattern is stable from prior exams. There are no skin or axillary changes. MM/MM tomosynthesis screening BI IMPRESSION: No mammographic evidence of malignancy. ASSESSMENT: BI-RADS BI-RADS 1 - Negative RECOMMENDATION: Routine annual mammography screening. 1 year F/U This examination should not preclude the clinical evaluation of a suspicious palpable abnormality. This patient's information was entered into a reminder system with a target due date for their next mammogram.
== END 2023-08-02 12:45 | disposition home or self-care (01) ==
LOC: HO.MAMMO 12:44
PROVIDERS: PCP Nurse Practitioner Family; Visit Provider Nurse Practitioner Family
DX: Z12.31 Encounter for screening mammogram for malignant neoplasm of breast (principal)
CPT/HCPCS: 77063; 77067

== ENCOUNTER 2024-02-25 15:53 | Outpatient (REF) | payer MEDICAID, SELFPAY ==
[2024-02-25 18:19] LABS: Cholesterol 186 mg/dL (<200); HDL Cholesterol 65 mg/dL (>40); LDL Cholesterol Calculated 105 mg/dL (<100); Triglycerides 81 mg/dL (<150)
[2024-02-26 06:26] LABS: Estimated Average Glucose 105 mg/dL; Hemoglobin A1c % 5.3 % (<6.0)
== END 2024-02-25 15:54 | disposition home or self-care (01) ==
LOC: HO.HHCL 15:53
PROVIDERS: Visit Provider Nurse Practitioner Family
DX: E11.9 Type 2 diabetes mellitus without complications (principal); E78.00 Pure hypercholesterolemia, unspecified
CPT/HCPCS: 36415; 80061; 83036

== ENCOUNTER 2024-05-30 11:55 | Outpatient (REF) | payer MEDICAID, SELFPAY ==
[2024-05-30 13:51] LABS: HCG Quantitative < 2 mIU/mL
== END 2024-05-30 11:56 | disposition home or self-care (01) ==
LOC: HO.HHCL 11:55
PROVIDERS: Visit Provider Emergency Medicine
DX: N92.6 Irregular menstruation, unspecified (principal)
CPT/HCPCS: 36415; 84702

== ENCOUNTER 2024-06-07 18:33 | Emergency (ER) | payer MEDICAID, SELFPAY ==
[2024-06-07 18:42] VITALS: BP 120/68; PULSE 91; O2SAT 98
[2024-06-07 18:56] VITALS: BP 112/71; PULSE 102; RESP 16; TEMP 36.6; O2SAT 93; BMI 24.4
--- NOTE | 2024-06-07 19:12 | ED.ABDPAIN ---
HPI - Abdominal Pain General Chief Complaint: Abdominal Pain Stated Complaint: l sided abd pain Time Seen by Provider: 06/07/24 21:20 Source: patient Mode of arrival: ambulatory Limitations: no limitations History of Present Illness ED Provider: olivia HATFIELD narrative: Patient's history of chronic constipation comes here for lower abdominal pain thinking she is had a bowel movement earlier today also complaining of nausea and vomited 2 times patient was seen by PCP on 05/30 for bronchitis and was given prednisone Zithromax labs were done prior to my evaluation which showed serum HCG negative no fever no chills Related Data Previous Rx's ?Medication ?Instructions ?Recorded albuterol sulfate 90 mcg/actuation 2 puff inhalation QID PRN 09/10/22 aerosol inhaler shortness of breath or wheezing #8.5 grams benzonatate 100 mg capsule 100 mg PO TID PRN cough #10 caps 09/10/22 prednisone 50 mg tablet 50 mg PO DAILY #4 tabs 09/10/22 omeprazole 40 mg capsule,delayed 40 mg PO DAILY #20 caps 02/04/23 release polyethylene glycol 3350 17 17 g PO DAILY #119 grams 02/04/23 gram/dose oral powder (Miralax) Allergies Allergy/AdvReac Type Severity Reaction Status Date / Time aspirin [ASA] Allergy Swelling Verified 09/10/22 21:19 iodine Allergy Rash Verified 06/07/24 19:12 kiwi Allergy Rash Verified 09/10/22 21:19 NSAIDS (Non-Steroidal Allergy Rash Verified 06/07/24 19:12 Anti-Inflamma Penicillins Allergy Swelling Verified 09/10/22 21:19 shrimp Allergy Swelling Verified 09/10/22 21:19 Sulfa (Sulfonamide Allergy Rash Verified 09/10/22 21:19 Antibiotics) Review of Systems Review of Systems Yes all other systems are reviewed and are negative PMF Past Medical History Medical History Asthma Social History Social History Smoked in Last 30 Days: No Use of substances other than those prescribed or required for medical reasons: No Advance Directives: No Advance Directives Information Provided: No Physical Exam ED Vital Signs: Vital Signs - 24 hr 06/07/24 18:56 06/07/24 23:32 Temperature 98 F 0 F L Pulse Rate 102 H 0 L Respiratory Rate 16 0 L Blood Pressure 112/71 00/00 L Pulse Oximetry 93 0 L Oxygen Delivery Method Room Air BMI result Body Mass Index 24.4 Appearance: Alert. Oriented X3. No acute distress. Eyes: No pallor or icterus ENT: Pharynx normal. Oral Mucosa moist Neck: Normal inspection. Neck supple. CVS: Normal heart rate and rhythm. Pulses normal. Respiratory: No respiratory distress. Equal air entry bilateral, no wheezing/rales/rhonchi Abdomen: Soft and mild diffuse tenderness no rebound tenderness or guarding Bowel sounds are present, no mass palpable, no CVA tenderness Skin: Skin warm and dry. Normal skin color. Normal skin turgor. Extremities: No lower extremity edema. No calf tenderness Neuro: Oriented X 3. Course Course Course Narrative: This is a Rapid Medical Examination (RME) performed by Joanna Rodas PA-C in triage. Full HPI, ROS, assessment and treatment plan per primary provider in the Main ED. 43 yo female here with nausea and lower abdominal pain x2 wks. reports concern for . pt sexually active, does not use protection, not on control. LMP 1 mo ago. would like to be tested for STDs. reports warm urine, denies dysuria, hematuria, vaginal discharge, vaginal bleeding, fever, chills, vomiting, diarrhea, constipation. Plan: labs, UA Medical Decision Making Lab Data MDM Lab Attestation statement: I reviewed the patient's lab results. 06/07/24 19:21 06/07/24 19:21 Labs: Lab Results 06/07/24 Range/Units 19:21 WBC 14.1 H (4.8-10.8) X10*3/uL RBC 5.26 (4.20-5.50) X10*6/uL Hgb 16.2 H (12.0-16.0) g/dl Hct 46.7 (37.0-47.0) % MCV 88.8 (80.0-98.0) fL MCH 30.8 (27.0-33.0) pg MCHC 34.7 (31.0-35.0) g/dl RDW 13.1 (11.0-16.0) % Plt Count 286 (160-400) X10*3/uL MPV 8.9 L (9.4-12.3) fL Immature Gran % (Auto) 0.8 H (0.0-0.4) % Neut % (Auto) 67.1 (45-73) % Lymph % (Auto) 22.1 (20-40) % [place] % (Auto) 6.9 (2-11) % Eos % (Auto) 2.5 (0-4) % Baso % (Auto) 0.6 (0-2) % Lymph # (Auto) 3.1 (1.2-4.9) X10*3/uL [place] # (Auto) 1.0 (0.1-1.2) X10*3/uL Eos # (Auto) 0.4 (0.0-0.4) X10*3/uL Baso # (Auto) 0.1 (0.0-0.2) X10*3/uL Abs Immat Gran (auto) 0.11 H (0.00-0.03) X10*3/uL Absolute Neuts (auto) 9.4 H (2.0-8.3) x10*3/uL Absolute Nucleated RBC 0.000 (0.0-0.012) X10*3/uL Nucleated RBC % (auto) 0.0 (0.0-0.2) /100WBC Sodium 139 (135-145) mmol/L Potassium 3.8 (3.3-5.1) mmol/L Chloride 105 (96-108) mmol/L Carbon Dioxide 25 (22-29) mmol/L Anion Gap 13 (12-20) BUN 10 (9-16) mg/dL Creatinine 0.83 (0.5-1.4) mg/dL Estim Creat Clear Calc 67.5 Estimated GFR > 60 Random Glucose 135 H (60-115) mg/dL Calcium 9.2 D (8.4-10.2) mg/dL Magnesium 2.1 (1.6-2.6) mg/dL Total Bilirubin 0.3 (0.0-1.0) mg/dL AST 14 (5-31) U/L ALT 14 (0-31) U/L Alkaline Phosphatase 111 (39-117) U/L Total Protein 7.3 (6.5-8.0) g/dL Albumin 4.4 (3.5-5.0) g/dL Lipase 15 (8-78) U/L Beta HCG, Quant < 2 mIU/mL Discharge Plan Discharge Clinical Impression: Abdominal pain Patient Disposition: Home, Self-Care Instructions: Abdominal Pain (ED) Additional Instructions: Drink plenty of fluid Your urine result is pending Follow with your PCP Prescriptions: No Action albuterol sulfate 90 mcg/actuation HFA aerosol inhaler 2 puff inhalation QID PRN (Reason: shortness of breath or wheezing) Qty: 8.5 0RF prednisone 50 mg tablet 50 mg PO DAILY Qty: 4 0RF benzonatate 100 mg capsule 100 mg PO TID PRN (Reason: cough) Qty: 10 0RF omeprazole 40 mg capsule,delayed release(DR/EC) 40 mg PO DAILY Qty: 20 0RF polyethylene glycol 3350 [Miralax] 17 gram/dose powder 17 g PO DAILY Qty: 119 0RF Interventions: ED Discharge Assessment Last Done: 06/07/24 23:32 Discharge Date/Time: 06/07/24 23:34 Print Language: Arabic
[2024-06-07 19:26] LABS: MANUAL DIFF FLAG NO
[2024-06-07 19:27] LABS: Basophils Absolute Auto 0.1 X10*3/uL (0.0-0.2); Basophils Percent Auto 0.6 % (0-2); Eosinophils Absolute Auto 0.4 X10*3/uL (0.0-0.4); Eosinophils Percent Auto 2.5 % (0-4); Hematocrit 46.7 % (37.0-47.0); Hemoglobin 16.2 g/dl (12.0-16.0); Imm Gran Abs Auto 0.11 X10*3/uL (0.00-0.03); Imm Gran Pct Auto 0.8 % (0.0-0.4); Lymphocytes Absolute Auto 3.1 X10*3/uL (1.2-4.9); Lymphocytes Percent Auto 22.1 % (20-40); Mean Corpuscular HGB Conc 34.7 g/dl (31.0-35.0); Mean Corpuscular Hemoglobin 30.8 pg (27.0-33.0); Mean Corpuscular Volume 88.8 fL (80.0-98.0); Mean Platelet Volume 8.9 fL (9.4-12.3); Monocytes Percent Auto 6.9 % (2-11); Neutrophils Absolute Auto 9.4 x10*3/uL (2.0-8.3); Neutrophils Percent Auto 67.1 % (45-73); Platelet Count 286 X10*3/uL (160-400); Red Blood Count 5.26 X10*6/uL (4.20-5.50); Red Cell Distribution Width 13.1 % (11.0-16.0); White Blood Count 14.1 X10*3/uL (4.8-10.8)
[2024-06-07 20:13] LABS: Alanine Aminotransferase 14 U/L (0-31); Albumin Level 4.4 g/dL (3.5-5.0); Alkaline Phosphatase 111 U/L (39-117); Anion Gap 13 (12-20); Aspartate Amino Transferase 14 U/L (5-31); Bilirubin Total 0.3 mg/dL (0.0-1.0); Blood Urea Nitrogen 10 mg/dL (9-16); Calcium 9.2 mg/dL (8.4-10.2); Carbon Dioxide 25 mmol/L (22-29); Chloride 105 mmol/L (96-108); Creatinine Clr Calc Pharmacy 67.5; Estimated Glomerular Filt Rate > 60; Glucose Random 135 mg/dL (60-115); HCG Quantitative < 2 mIU/mL; Lipase 15 U/L (8-78); Magnesium 2.1 mg/dL (1.6-2.6); Potassium 3.8 mmol/L (3.3-5.1); Sodium 139 mmol/L (135-145); Total Protein 7.3 g/dL (6.5-8.0)
--- NOTE | 2024-06-07 20:58 | PC.NURSE ---
Pt is a&ox4, no signs of distress Pt reports she was just given prednisone and azithromycin for a throat infection Pt also reporting she believes she is . Plan of care ongoing.
[2024-06-07 23:32] VITALS: BP 00/00; PULSE 0; RESP 0; TEMP -17.7; TEMP 0; O2SAT 0
== END 2024-06-07 23:34 | disposition home or self-care (01) ==
PROVIDERS: Physician Assistant Medical; Emergency Provider Internal Medicine
DX: R10.30 Lower abdominal pain, unspecified (principal)
CPT/HCPCS: 36415; 80053; 83690; 83735; 84702; 85025; 99283; 99284

== ENCOUNTER 2024-07-01 14:22 | Outpatient (REF) | payer MEDICAID, SELFPAY ==
--- NOTE | ~2024-07-01 | XR_ITS ---
EXAMINATION: XR SHOULDER, RIGHT CLINICAL INFORMATION: Acute right shoulder pain. COMPARISON: None available. TECHNIQUE: Three views of the right shoulder. FINDINGS: The bones and soft tissues appear unremarkable. No fracture appreciated. Glenohumeral and acromioclavicular alignment is anatomic with normal joint space. No significant abnormal soft tissue calcifications identified. XR/XR shoulder RT min 2V IMPRESSION: Normal plain film examination of the right shoulder. Electronically signed by: Chilo Valladares MD 07/02/2024 08:51 AM [facility]
== END 2024-07-01 14:23 | disposition home or self-care (01) ==
LOC: HO.HHCX 14:22
PROVIDERS: Visit Provider Family Medicine
DX: M25.511 Pain in right shoulder (principal)
CPT/HCPCS: 73030

== ENCOUNTER 2024-07-07 22:24 | Emergency (ER) | payer MEDICAID, SELFPAY ==
--- NOTE | ~2024-07-07 | CT_ITS ---
EXAMINATION: CT HEAD WITHOUT CONTRAST CT CERVICAL SPINE WITHOUT CONTRAST CLINICAL INFORMATION: Fall. Pain. COMPARISON: None available. TECHNIQUE: Contiguous axial imaging was performed from the skull base to vertex without intravenous administration of contrast. Contiguous axial imaging was performed from the upper chest through the skull base without intravenous administration of contrast. Coronal and sagittal reformats were obtained at the acquisition workstation. This CT examination was performed using dose optimization techniques as appropriate, variously including the following: *Automated exposure control. *Adjustment of mA and/or kV according to patient size (this includes techniques or standardized protocols for targeted exams where dose is matched to indication/reason for exam; i.e. extremities or head). *Use of iterative reconstruction technique. DLP: 1148 mGy-cm FINDINGS: Head: There is no evidence of acute intracranial hemorrhage or edematous territorial infarction. [place]-white matter differentiation is preserved. Few nonspecific scattered foci of hypoattenuation in the periventricular and deep white matter. The ventricles are normal in morphology and size. No evidence for obstructive hydrocephalus. No abnormal mass effect or midline shift. No extra-axial fluid collections. No acute soft tissue or osseous abnormalities. The mastoid air cells and visualized paranasal sinuses are clear. Cervical Spine: The atlantooccipital and atlantoaxial articulations remain well aligned. Moderate degenerative arthropathy of the atlantodental articulation. Reversal the normal cervical lordosis centered on C5. Mild degenerative stepwise anterolistheses of C3-C5. Otherwise, there is anatomic alignment of the vertebral bodies and posterior elements. No evidence of acute fracture or subluxation. The vertebral body heights are maintained. Mild multilevel degenerative disc disease. There is no prevertebral soft tissue swelling. The thyroid gland and remaining cervical soft tissues are within normal limits. The lung apices demonstrate no abnormalities. CT/CT head/brain wo IV con IMPRESSION: 1. No evidence of acute intracranial hemorrhage or edematous territorial infarction. 2. No evidence of acute fracture or traumatic subluxation of the cervical spine. 3. Mild multilevel degenerative spondyloarthropathy of the cervical spine. Electronically signed by: Matias Hunter DO 07/08/2024 12:13 AM [facility]
--- NOTE | ~2024-07-07 | CT_ITS ---
EXAMINATION: CT HEAD WITHOUT CONTRAST CT CERVICAL SPINE WITHOUT CONTRAST CLINICAL INFORMATION: Fall. Pain. COMPARISON: None available. TECHNIQUE: Contiguous axial imaging was performed from the skull base to vertex without intravenous administration of contrast. Contiguous axial imaging was performed from the upper chest through the skull base without intravenous administration of contrast. Coronal and sagittal reformats were obtained at the acquisition workstation. This CT examination was performed using dose optimization techniques as appropriate, variously including the following: *Automated exposure control. *Adjustment of mA and/or kV according to patient size (this includes techniques or standardized protocols for targeted exams where dose is matched to indication/reason for exam; i.e. extremities or head). *Use of iterative reconstruction technique. DLP: 1148 mGy-cm FINDINGS: Head: There is no evidence of acute intracranial hemorrhage or edematous territorial infarction. [place]-white matter differentiation is preserved. Few nonspecific scattered foci of hypoattenuation in the periventricular and deep white matter. The ventricles are normal in morphology and size. No evidence for obstructive hydrocephalus. No abnormal mass effect or midline shift. No extra-axial fluid collections. No acute soft tissue or osseous abnormalities. The mastoid air cells and visualized paranasal sinuses are clear. Cervical Spine: The atlantooccipital and atlantoaxial articulations remain well aligned. Moderate degenerative arthropathy of the atlantodental articulation. Reversal the normal cervical lordosis centered on C5. Mild degenerative stepwise anterolistheses of C3-C5. Otherwise, there is anatomic alignment of the vertebral bodies and posterior elements. No evidence of acute fracture or subluxation. The vertebral body heights are maintained. Mild multilevel degenerative disc disease. There is no prevertebral soft tissue swelling. The thyroid gland and remaining cervical soft tissues are within normal limits. The lung apices demonstrate no abnormalities. CT/CT cervical spine wo IV con IMPRESSION: 1. No evidence of acute intracranial hemorrhage or edematous territorial infarction. 2. No evidence of acute fracture or traumatic subluxation of the cervical spine. 3. Mild multilevel degenerative spondyloarthropathy of the cervical spine. Electronically signed by: Matias Hunter DO 07/08/2024 12:13 AM [facility]
[2024-07-07 22:30] VITALS: BP 130/96; PULSE 79; O2SAT 96
[2024-07-07 22:37] VITALS: BP 107/68; PULSE 73; RESP 17; TEMP 36.7; O2SAT 100
--- NOTE | 2024-07-07 22:40 | ECG_ITS ---
Test Reason : SYNCOPE Blood Pressure : / mmHG Vent. Rate : 077 BPM Atrial Rate : 077 BPM P-R Int : 150 ms QRS Dur : 088 ms QT Int : 390 ms P-R-T Axes : 000 134 168 degrees QTc Int : 441 ms Limb lead reversal Normal sinus rhythm Left posterior fascicular block Abnormal ECG When compared with ECG of 10-SEP-2022 21:22, Left posterior fascicular block is now Present Referred By: Deidre Saldivar Electronically Signed By:Rayo Mancilla
--- NOTE | 2024-07-07 22:41 | ED_ITS ---
HPI - General Adult General Chief complaint: Fall Stated complaint: ear lac Time Seen by Provider: 07/07/24 22:36 Source: patient and EMS Mode of arrival: EMS Limitations: no limitations History of Present Illness ED Provider: Dr. Deidre Saldivar HPI narrative: Patient comes to the emergency room from home. According to the patient she had a mechanical fall, rule out of bed trying to get up to the bathroom and landed on the left side of her body lacerated the left side of the ear. Patient has C-collar on. Patient also complaining of mild headache and bilateral neck pain posteriorly. According to EMS, the patient has been drinking alcohol. Related Data Previous Rx's ?Medication ?Instructions ?Recorded albuterol sulfate 90 mcg/actuation 2 puff inhalation QID PRN 09/10/22 aerosol inhaler shortness of breath or wheezing #8.5 grams benzonatate 100 mg capsule 100 mg PO TID PRN cough #10 caps 09/10/22 prednisone 50 mg tablet 50 mg PO DAILY #4 tabs 09/10/22 omeprazole 40 mg capsule,delayed 40 mg PO DAILY #20 caps 02/04/23 release polyethylene glycol 3350 17 17 g PO DAILY #119 grams 02/04/23 gram/dose oral powder (Miralax) Allergies Allergy/AdvReac Type Severity Reaction Status Date / Time aspirin [ASA] Allergy Swelling Verified 07/07/24 23:07 iodine Allergy Rash Verified 07/07/24 23:07 kiwi Allergy Rash Verified 07/07/24 23:07 NSAIDS (Non-Steroidal Allergy Rash Verified 07/07/24 23:07 Anti-Inflamma Penicillins Allergy Swelling Verified 07/07/24 23:07 shrimp Allergy Swelling Verified 07/07/24 23:07 Sulfa (Sulfonamide Allergy Rash Verified 07/07/24 23:07 Antibiotics) Review of Systems Review of Systems: Constitutional : No Weight loss, No Fever, No Chills, No Night Sweats, No Fatigue, No Malaise ENT/Mouth : No Hearing loss, No Ear Pain, No Nasal Congestion, No Sinus Pain, No Hoarseness, No sore throat, No Rhinorrhea, No Swallowing Difficulty Eyes: No Eye Pain, No Swelling, No Redness, No Foreign Body, No Discharge, No Vision Changes Cardiovascular : No Chest Pain, No SOB, No Dyspnea on Exertion, No Orthopnea, No Edema, No Palpitations Respiratory : No Cough, No Sputum, No Wheezing, No Smoke Exposure, No Dyspnea Gastrointestinal : No Nausea, No Vomiting, No Diarrhea, No Constipation, No abdominal Pain, No Hematochezia, No Melena Genitourinary : no irregular bleeding, No Dysuria, No Urinary Frequency, No Hematuria, No Urinary Incontinence, No Urgency, No Flank Pain, No Urinary Flow Changes, No Hesitancy Musculoskeletal : Complaining of mild posterior bilateral cervical/neck pain, No joint pain, No Myalgias, No Joint Swelling Skin : Complaining of a laceration to the left ear, No Skin Lesions, No rash Neuro : No Weakness, No Numbness, No Paresthesias, No Loss of Consciousness, No Dizziness, complaining of mild Headache Psych : No Anxiety/Panic, No Depression, No SI/HI/AH/VH, No Social Issues, Heme/Lymph: No Bruising, No Bleeding,No Lymphadenopathy Endocrine : No Polyuria, No Polydipsia, No Temperature Intolerance PMFSH Past Medical History Medical History Asthma Social History Social History Advance Directives: No Advance Directives Information Provided: No Physical Exam ED Vital Signs: Vital Signs - 24 hr 07/07/24 22:37 Temperature 98.1 F Pulse Rate 73 Respiratory Rate 17 Blood Pressure 107/68 Pulse Oximetry 100 Oxygen Delivery Method Room Air BMI result Body Mass Index 30.4 Const Other: Appearance: Alert. Oriented X3. No acute distress. Eyes: Pupils equal, round and reactive to light. ENT: Pharynx normal. Patient has a laceration that goes through the entire helix, antihelix and post sulcus Neck: Normal inspection. Neck supple. No lymph nodes noted. No crepitus CVS: Normal heart rate and rhythm. Pulses normal. Normal S1 and S2 Respiratory: No respiratory distress. Breath sounds normal. No Wheezing. No rales Abdomen: Soft and nontender. No rigidity. No distention. Skin: Skin warm and dry. Normal skin color. Normal skin turgor. Extremities: No lower extremity edema. No Lacerations. No Rash Neuro: Oriented X 3. No motor deficit. No sensory deficit. Moving all extremities. No slurred speech. CN 2 through 12 grossly intact Psych: calm, cooperative, normal affect Procedures Laceration Laceration 1: Site: other (Left ear through the entire helix, antihelix and post sulcus) Side (If applicable): left Size (cm): 7 Description: irregular Depth: involves tendon and [id number] Local Anesthetic: lidocaine 1% Amount of anesthesia used (mL): 20 Pre-repair: wound explored and irrigated extensively Skin layer closed with: nylon Size (cm): 6-0 Number of sutures: 15 Technique: simple, interrupted Medical Decision Making Medical Decision Making MDM Narrative: My interpretation head CT and cervical spine CT, no acute abnormality. Patient needed 14 stitches anteriorly/posteriorly throughout the ear. Patient had a laceration through the ear as mentioned above in the physical exam Differential Diagnosis Differential Diagnoses: The differential diagnosis associated with the presentation includes (Alcohol intoxication, mechanical fall, ear laceration) Independent Interpretation I performed an independent interpretation of an: CT Scan Radiology Impression Discussion of test interpretation with radiology: I have reviewed the radiologist's reading. Radiologist Impression: Head: There is no evidence of acute intracranial hemorrhage or edematous territorial infarction. [place]-white matter differentiation is preserved. Few nonspecific scattered foci of hypoattenuation in the periventricular and deep white matter. The ventricles are normal in morphology and size. No evidence for obstructive hydrocephalus. No abnormal mass effect or midline shift. No extra-axial fluid collections. No acute soft tissue or osseous abnormalities. The mastoid air cells and visualized paranasal sinuses are clear. Cervical Spine: The atlantooccipital and atlantoaxial articulations remain well aligned. Moderate degenerative arthropathy of the atlantodental articulation. Reversal the normal cervical lordosis centered on C5. Mild degenerative stepwise anterolistheses of C3-C5. Otherwise, there is anatomic alignment of the vertebral bodies and posterior elements. No evidence of acute fracture or subluxation. The vertebral body heights are maintained. Mild multilevel degenerative disc disease. There is no prevertebral soft tissue swelling. The thyroid gland and remaining cervical soft tissues are within normal limits. The lung apices demonstrate no abnormalities. CT/CT head/brain wo IV con IMPRESSION: 1. No evidence of acute intracranial hemorrhage or edematous territorial infarction. 2. No evidence of acute fracture or traumatic subluxation of the cervical spine. 3. Mild multilevel degenerative spondyloarthropathy of the cervical spine. Critical Care Time Critical Care Time Critical Care Time: Yes Total Critical Care Time: 60 Attestation: I have personally provided critical care time. Time includes review of lab data, radiology results, discussion with consultants, and monitoring for potential decompensation. Intervention performed as documented. Discharge Plan Discharge Clinical Impression: Fall, Head injury, Laceration of ear, external, left Patient Disposition: Home, Self-Care Instructions: Fall Prevention for Older Adults (ED), Head Injury (ED), Laceration (ED) Additional Instructions: Your stitches need to be removed in 7-10 days. Please follow-up with your primary care physician tomorrow. If you have any worsening or new symptoms, please return to the emergency room or call 911 Prescriptions: No Action albuterol sulfate 90 mcg/actuation HFA aerosol inhaler 2 puff inhalation QID PRN (Reason: shortness of breath or wheezing) Qty: 8.5 0RF prednisone 50 mg tablet 50 mg PO DAILY Qty: 4 0RF benzonatate 100 mg capsule 100 mg PO TID PRN (Reason: cough) Qty: 10 0RF omeprazole 40 mg capsule,delayed release(DR/EC) 40 mg PO DAILY Qty: 20 0RF polyethylene glycol 3350 [Miralax] 17 gram/dose powder 17 g PO DAILY Qty: 119 0RF Print Language: [place]
[2024-07-07 23:03] VITALS: BMI 30.4
[2024-07-08 01:54] VITALS: BP 106/62; PULSE 80; RESP 16; TEMP 36.7; O2SAT 97
[2024-07-08] MEDS: Lidocaine HCl 1 % 10 ML VIAL 30 ML INFILTRATI (02:08)
--- NOTE | 2024-07-08 02:10 | PC.NURSE ---
provider sutured laceration to left ear, pt is able to answer questions, pt resting in bed, pt awaiting to come pick her up.
[2024-07-08 03:20] VITALS: BP 106/62; PULSE 80; RESP 16; TEMP 36.7; O2SAT 93
== END 2024-07-08 03:21 | disposition home or self-care (01) ==
PROVIDERS: Emergency Provider Emergency Medicine; PCP Nurse Practitioner Family
DX: S01.312A Laceration without foreign body of left ear, initial encounter (principal); S09.90XA Unspecified injury of head, initial encounter; R51.9 Headache, unspecified; M54.2 Cervicalgia; R55 Syncope and collapse; R94.31 Abnormal electrocardiogram [ECG] [EKG]; W01.0XXA Fall on same level from slipping, tripping and stumbling without subsequent striking against object, initial encounter; Y93.89 Activity, other specified; Y92.002 Bathroom of unspecified non-institutional (private) residence as the place of occurrence of the external cause; Y99.8 Other external cause status
CPT/HCPCS: 12053; 70450; 72125; 93005; 99285; J2003

== ENCOUNTER → 2024-07-07 22:40 | Outpatient (BNV) | payer MEDICAID, SELFPAY | PROVIDERS: Emergency Provider Emergency Medicine; PCP Nurse Practitioner Family; Visit Provider Internal Medicine Cardiovascular Disease | DX: R94.31 Abnormal electrocardiogram [ECG] [EKG] (principal) | CPT/HCPCS: 93010 ==

== ENCOUNTER 2024-07-25 20:28 | Emergency (ER) | payer MEDICAID, SELFPAY ==
--- NOTE | ~2024-07-25 | CT_ITS ---
EXAMINATION: CT HEAD WITHOUT CONTRAST CT FACIAL BONES WITHOUT CONTRAST CT CERVICAL SPINE WITHOUT CONTRAST CLINICAL INFORMATION: Fall. Trauma. Pain. COMPARISON: None available. TECHNIQUE: Contiguous axial imaging was performed through the head, facial bones and cervical spine without intravenous administration of contrast. Sagittal and coronal reformatted images also obtained. This CT examination was performed using dose optimization techniques as appropriate, variously including the following: *Automated exposure control *Adjustment of mA and/or kV according to patient size (this includes techniques or standardized protocols for targeted exams where dose is matched to indication/reason for exam; i.e. extremities or head) *Use of iterative reconstruction technique DLP: 1301 mGy-cm FINDINGS: The lateral, third and fourth ventricles are normally outlined. The cortical sulci and basal cisterns are normally outlined as well. There is no acute territorial defect, hemorrhage or midline shift. The extra-axial spaces are unremarkable. Calvarium/scalp: Intact. Facial bones/maxillofacial sinuses. No fracture is seen. The maxillofacial sinuses and mastoids are clear. Intraorbital structures are unremarkable. There is left supraorbital/inferior frontal soft tissue swelling. There is dental disease with periapical lucencies. Cervical spine: There is mild reversal of the expected cervical spine curvature. There is mild/early diffuse cervical disc degenerative change with mild endplate sclerosis and mild osteophyte formation. The spinal canal and neuroforamen are patent. There is no fracture. The soft tissues are unremarkable. The visualized upper lung rasmussen are clear. CT/CT head/brain wo IV con IMPRESSION: 1. No acute intracranial finding. 2. There is left supraorbital/inferior frontal soft tissue swelling. No acute fracture or dislocation is seen. 3. There is mild reversal of the expected cervical spine curvature, which can be seen in association with muscle spasm. There is mild/early diffuse cervical disc degenerative change. Electronically signed by: Dayton Vazquez MD 07/25/2024 11:32 PM EST
--- NOTE | ~2024-07-25 | CT_ITS ---
EXAMINATION: CT HEAD WITHOUT CONTRAST CT FACIAL BONES WITHOUT CONTRAST CT CERVICAL SPINE WITHOUT CONTRAST CLINICAL INFORMATION: Fall. Trauma. Pain. COMPARISON: None available. TECHNIQUE: Contiguous axial imaging was performed through the head, facial bones and cervical spine without intravenous administration of contrast. Sagittal and coronal reformatted images also obtained. This CT examination was performed using dose optimization techniques as appropriate, variously including the following: *Automated exposure control *Adjustment of mA and/or kV according to patient size (this includes techniques or standardized protocols for targeted exams where dose is matched to indication/reason for exam; i.e. extremities or head) *Use of iterative reconstruction technique DLP: 1301 mGy-cm FINDINGS: The lateral, third and fourth ventricles are normally outlined. The cortical sulci and basal cisterns are normally outlined as well. There is no acute territorial defect, hemorrhage or midline shift. The extra-axial spaces are unremarkable. Calvarium/scalp: Intact. Facial bones/maxillofacial sinuses. No fracture is seen. The maxillofacial sinuses and mastoids are clear. Intraorbital structures are unremarkable. There is left supraorbital/inferior frontal soft tissue swelling. There is dental disease with periapical lucencies. Cervical spine: There is mild reversal of the expected cervical spine curvature. There is mild/early diffuse cervical disc degenerative change with mild endplate sclerosis and mild osteophyte formation. The spinal canal and neuroforamen are patent. There is no fracture. The soft tissues are unremarkable. The visualized upper lung rasmussen are clear. CT/CT facial bones wo IV con IMPRESSION: 1. No acute intracranial finding. 2. There is left supraorbital/inferior frontal soft tissue swelling. No acute fracture or dislocation is seen. 3. There is mild reversal of the expected cervical spine curvature, which can be seen in association with muscle spasm. There is mild/early diffuse cervical disc degenerative change. Electronically signed by: Dayton Vazquez MD 07/25/2024 11:32 PM [facility]
--- NOTE | ~2024-07-25 | CT_ITS ---
EXAMINATION: CT HEAD WITHOUT CONTRAST CT FACIAL BONES WITHOUT CONTRAST CT CERVICAL SPINE WITHOUT CONTRAST CLINICAL INFORMATION: Fall. Trauma. Pain. COMPARISON: None available. TECHNIQUE: Contiguous axial imaging was performed through the head, facial bones and cervical spine without intravenous administration of contrast. Sagittal and coronal reformatted images also obtained. This CT examination was performed using dose optimization techniques as appropriate, variously including the following: *Automated exposure control *Adjustment of mA and/or kV according to patient size (this includes techniques or standardized protocols for targeted exams where dose is matched to indication/reason for exam; i.e. extremities or head) *Use of iterative reconstruction technique DLP: 1301 mGy-cm FINDINGS: The lateral, third and fourth ventricles are normally outlined. The cortical sulci and basal cisterns are normally outlined as well. There is no acute territorial defect, hemorrhage or midline shift. The extra-axial spaces are unremarkable. Calvarium/scalp: Intact. Facial bones/maxillofacial sinuses. No fracture is seen. The maxillofacial sinuses and mastoids are clear. Intraorbital structures are unremarkable. There is left supraorbital/inferior frontal soft tissue swelling. There is dental disease with periapical lucencies. Cervical spine: There is mild reversal of the expected cervical spine curvature. There is mild/early diffuse cervical disc degenerative change with mild endplate sclerosis and mild osteophyte formation. The spinal canal and neuroforamen are patent. There is no fracture. The soft tissues are unremarkable. The visualized upper lung rasmussen are clear. CT/CT cervical spine wo IV con IMPRESSION: 1. No acute intracranial finding. 2. There is left supraorbital/inferior frontal soft tissue swelling. No acute fracture or dislocation is seen. 3. There is mild reversal of the expected cervical spine curvature, which can be seen in association with muscle spasm. There is mild/early diffuse cervical disc degenerative change. Electronically signed by: Dayton Vazquez MD 07/25/2024 11:32 PM [facility]
[2024-07-25 20:34] VITALS: BP 113/64; PULSE 68; RESP 16; TEMP 36.6; O2SAT 98
[2024-07-25 20:45] VITALS: BP 107/59; BP 122/78; PULSE 68; PULSE 72; RESP 16; TEMP 36.4; O2SAT 99; BMI 29.6
--- NOTE | 2024-07-25 21:30 | PC.NURSE ---
notified provider that patient hematoma on forehead appears larger than when arrived to ED.
--- NOTE | 2024-07-25 21:32 | ED_ITS ---
HPI - General Adult General Chief complaint: Fall Stated complaint: fall ETOH Time Seen by Provider: 07/25/24 21:32 History of Present Illness ED Provider: Randolph HATFIELD narrative: The patient is a 43-year-old woman who comes to the emergency room after hitting her head when she fell out of a chair at home. She has been drinking alcohol. There was apparently no loss of consciousness. She has pain in the region of the left forehead and the left cheek. She was complaining of facial pain and also some neck pain. She was intoxicated. She says she has been drinking heavily because she is depressed. She lives at home with her . She says that she feels safe at home and that no in his hurt her at home. She admits to depression but denies suicidality or any intent to harm herself. The patient has been seen in the emergency room a little over 2 weeks ago on July 07. At that time she had also fallen while intoxicated. She required sutures because of a laceration in the left external ear. Related Data Previous Rx's ?Medication ?Instructions ?Recorded albuterol sulfate 90 mcg/actuation 2 puff inhalation QID PRN 09/10/22 aerosol inhaler shortness of breath or wheezing #8.5 grams benzonatate 100 mg capsule 100 mg PO TID PRN cough #10 caps 09/10/22 prednisone 50 mg tablet 50 mg PO DAILY #4 tabs 09/10/22 omeprazole 40 mg capsule,delayed 40 mg PO DAILY #20 caps 02/04/23 release polyethylene glycol 3350 17 17 g PO DAILY #119 grams 02/04/23 gram/dose oral powder (Miralax) Allergies Allergy/AdvReac Type Severity Reaction Status Date / Time aspirin [ASA] Allergy Swelling Verified 07/25/24 20:47 iodine Allergy Rash Verified 07/25/24 20:47 kiwi Allergy Rash Verified 07/25/24 20:47 NSAIDS (Non-Steroidal Allergy Rash Verified 07/25/24 20:47 Anti-Inflamma Penicillins Allergy Swelling Verified 07/25/24 20:47 shrimp Allergy Swelling Verified 07/25/24 20:47 Sulfa (Sulfonamide Allergy Rash Verified 07/25/24 20:47 Antibiotics) Review of Systems 2 Review of Systems: Yes all other systems are reviewed and are negative PMFSH Past Medical History Medical History Asthma Social History Social History Alcohol intake: current Alcohol intake frequency: 3 or more drinks per day Alcohol type: beer Advance Directives: No Advance Directives Information Provided: No Physical Exam ED Vital Signs: Vital Signs - 24 hr 07/25/24 20:34 07/25/24 20:45 Temperature 97.9 F 97.5 F Pulse Rate 68 68 Respiratory Rate 16 16 Blood Pressure 113/64 107/59 L Pulse Oximetry 98 99 Oxygen Delivery Method Room Air Room Air BMI result Body Mass Index 29.6 Const Other: The patient was sleeping. She had a large bruise to the left forehead in the left cheek. She awoke fairly easily. She seems intoxicated but seems to have a fairly coherent mental status. HENMT Other: There is a large bruise left forehead and the left cheek. Skin is intact. No laceration. Mucous membranes are moist. No oral injuries Eyes Other: Pupils are round equal, extraocular movements are intact, no apparent discomfort with upper gaze. No apparent ocular injury or abnormality. Neck Other: The patient reported posterior C-spine tenderness. Resp Effort & Inspection: normal respiratory effort Auscultation: clear to auscultation bilaterally Cardio Rate: regular rate Rhythm: regular rhythm Heart sounds: S1 normal heart sound present and S2 normal heart sound present GI Other: Abdomen is soft and nontender Skin Other: The patient has contusion to the left forehead and left cheek. Skin is intact. Skin is otherwise unremarkable. Neuro Other: The patient was sleeping but was arousable with gentle stimulation. Pupils are round equal, extraocular movements are intact, facial movements are symmetrical, speech is fairly clear. She moves her extremities symmetrically. She seems to be neurologically intact aside from some degree of alcohol intoxication. Extrem Other: No signs of injury to the extremities Medical Decision Making Medical Decision Making MDM Narrative: The patient is a 43-year-old woman who comes to the emergency room after apparently falling out of a chair at home and striking her face. Her ethanol level is 248. A CT scan of the head, facial bones, and cervical spine are negative. The patient lives with her . She says that she feels safe at home and that no one is hurting her at home. This is the 2nd ER visit for traumatic injuries associated with alcohol intoxication this month. She required sutures to her left external ear a couple of weeks ago after a fall at home. The patient states she is drinking so much because she is depressed. She does not feel suicidal. She would like to speak to someone from [employer] [facility]. The patient will therefore be kept in the emergency room under physician observation with a plan for a care team assessment in the morning. Lab Data 07/25/24 22:06 07/25/24 22:06 Labs: Lab Results 07/25/24 Range/Units 22:06 WBC 11.2 H (4.8-10.8) X10*3/uL RBC 4.87 (4.20-5.50) X10*6/uL Hgb 14.7 (12.0-16.0) g/dl Hct 43.0 (37.0-47.0) % MCV 88.3 (80.0-98.0) fL MCH 30.2 (27.0-33.0) pg MCHC 34.2 (31.0-35.0) g/dl RDW 13.6 (11.0-16.0) % Plt Count 306 (160-400) X10*3/uL MPV 8.7 L (9.4-12.3) fL Immature Gran % (Auto) 0.7 H (0.0-0.4) % Neut % (Auto) 57.0 (45-73) % Lymph % (Auto) 31.2 (20-40) % [facility] [facility] % (Auto) 5.6 (2-11) % Eos % (Auto) 4.6 H (0-4) % Baso % (Auto) 0.9 (0-2) % Lymph # (Auto) 3.5 (1.2-4.9) X10*3/uL [facility] # (Auto) 0.6 (0.1-1.2) X10*3/uL Eos # (Auto) 0.5 H (0.0-0.4) X10*3/uL Baso # (Auto) 0.1 (0.0-0.2) X10*3/uL Abs Immat Gran (auto) 0.08 H (0.00-0.03) X10*3/uL Absolute Neuts (auto) 6.4 (2.0-8.3) x10*3/uL Absolute Nucleated RBC 0.000 (0.0-0.012) X10*3/uL Nucleated RBC % (auto) 0.0 (0.0-0.2) /100WBC PT 10.5 L (10.9-12.4) SEC INR 0.9 (0.9-1.1) Sodium 147 H (135-145) mmol/L Potassium 4.3 (3.3-5.1) mmol/L Chloride 111 H (96-108) mmol/L Carbon Dioxide 23 (22-29) mmol/L Anion Gap 17 (12-20) BUN 8 L (9-16) mg/dL Creatinine 0.75 (0.5-1.4) mg/dL Estim Creat Clear Calc 85.3 Estimated GFR > 60 Random Glucose 125 H (60-115) mg/dL Calcium 8.3 L D (8.4-10.2) mg/dL Magnesium 2.5 (1.6-2.6) mg/dL Total Bilirubin 0.2 (0.0-1.0) mg/dL Direct Bilirubin < 0.2 (0.0-0.5) mg/dL AST 32 H (5-31) U/L ALT 20 (0-31) U/L Alkaline Phosphatase 109 (39-117) U/L Total Protein 7.5 (6.5-8.0) g/dL Albumin 4.2 (3.5-5.0) g/dL Beta HCG, Quant < 2 mIU/mL Ethyl Alcohol 248 mg/dL Discharge Plan Discharge Clinical Impression: Depression, Alcohol intoxication, Fall, Head injury, Facial contusion Patient Disposition: Still a Patient Prescriptions: No Action albuterol sulfate 90 mcg/actuation HFA aerosol inhaler 2 puff inhalation QID PRN (Reason: shortness of breath or wheezing) Qty: 8.5 0RF prednisone 50 mg tablet 50 mg PO DAILY Qty: 4 0RF benzonatate 100 mg capsule 100 mg PO TID PRN (Reason: cough) Qty: 10 0RF omeprazole 40 mg capsule,delayed release(DR/EC) 40 mg PO DAILY Qty: 20 0RF polyethylene glycol 3350 [Miralax] 17 gram/dose powder 17 g PO DAILY Qty: 119 0RF Print Language: Mohawk
[2024-07-25 22:10] LABS: MANUAL DIFF FLAG NO
[2024-07-25 22:11] LABS: Basophils Absolute Auto 0.1 X10*3/uL (0.0-0.2); Basophils Percent Auto 0.9 % (0-2); Eosinophils Absolute Auto 0.5 X10*3/uL (0.0-0.4); Eosinophils Percent Auto 4.6 % (0-4); Hemoglobin 14.7 g/dl (12.0-16.0); Imm Gran Abs Auto 0.08 X10*3/uL (0.00-0.03); Imm Gran Pct Auto 0.7 % (0.0-0.4); Lymphocytes Absolute Auto 3.5 X10*3/uL (1.2-4.9); Lymphocytes Percent Auto 31.2 % (20-40); Mean Corpuscular HGB Conc 34.2 g/dl (31.0-35.0); Mean Corpuscular Hemoglobin 30.2 pg (27.0-33.0); Mean Corpuscular Volume 88.3 fL (80.0-98.0); Mean Platelet Volume 8.7 fL (9.4-12.3); Monocytes Absolute Auto 0.6 X10*3/uL (0.1-1.2); Monocytes Percent Auto 5.6 % (2-11); Neutrophils Absolute Auto 6.4 x10*3/uL (2.0-8.3); Platelet Count 306 X10*3/uL (160-400); Red Blood Count 4.87 X10*6/uL (4.20-5.50); Red Cell Distribution Width 13.6 % (11.0-16.0); White Blood Count 11.2 X10*3/uL (4.8-10.8)
[2024-07-25 22:28] LABS: Alanine Aminotransferase 20 U/L (0-31); Albumin Level 4.2 g/dL (3.5-5.0); Alkaline Phosphatase 109 U/L (39-117); Anion Gap 17 (12-20); Aspartate Amino Transferase 32 U/L (5-31); Bilirubin Direct < 0.2 mg/dL (0.0-0.5); Bilirubin Total 0.2 mg/dL (0.0-1.0); Blood Urea Nitrogen 8 mg/dL (9-16); Calcium 8.3 mg/dL (8.4-10.2); Carbon Dioxide 23 mmol/L (22-29); Chloride 111 mmol/L (96-108); Creatinine Clr Calc Pharmacy 85.3; Estimated Glomerular Filt Rate > 60; Ethanol 248 mg/dL; Glucose Random 125 mg/dL (60-115); Magnesium 2.5 mg/dL (1.6-2.6); Potassium 4.3 mmol/L (3.3-5.1); Sodium 147 mmol/L (135-145); Total Protein 7.5 g/dL (6.5-8.0)
[2024-07-25 22:35] LABS: INTERNATIONAL NORM RATIO 0.9 (0.9-1.1); Prothrombin Time 10.5 SEC (10.9-12.4)
[2024-07-25 22:55] LABS: HCG Quantitative < 2 mIU/mL
[2024-07-26 03:21] VITALS: BP 101/58; PULSE 93; RESP 19; TEMP 36.8; O2SAT 96
[2024-07-26 05:44] LABS: Amphetamine Screen Urine Not Detected (Not Detect); Barbiturates, Urine Not Detected (Not Detect); Benzodiazepines Screen Urine Not Detected (Not Detect); Buprenorphine Scr Not Detected (Not Detect); Cannabinoid Screen Urine Not Detected (Not Detect); Cocaine Screen Urine Not Detected (Not Detect); Fentanyl, urine Not Detected (Not Detect); Methadone Screen, Urine Not Detected (Not Detect); Opiate Screen Urine Not Detected (Not Detect); Oxycodone Screen Urine Not Detected (Not Detect); Phencyclidine Screen Urine Not Detected (Not Detect)
--- NOTE | 2024-07-26 06:22 | PC.NURSE ---
this rn assumed care of pt @ 0315. pt assisted to restroom to obtain urine sample pt changed into hospital gown belongings placed in bag at bedside per charge preparation technician. compliance analyst utilized pt awaiting care team consult
[2024-07-26 08:57] VITALS: BP 125/62; PULSE 88; RESP 18; TEMP 37.1; O2SAT 97
[2024-07-26] MEDS: Albuterol Sulfate 90 MCG 8 GM INHALER 2 PUFF INHALE (09:30)
== END 2024-07-26 10:36 | disposition home or self-care (01) ==
PROVIDERS: Emergency Provider Emergency Medicine
DX: S00.83XA Contusion of other part of head, initial encounter (principal); S09.90XA Unspecified injury of head, initial encounter; F10.129 Alcohol abuse with intoxication, unspecified; F33.1 Major depressive disorder, recurrent, moderate; R51.9 Headache, unspecified; M54.2 Cervicalgia; W07.XXXA Fall from chair, initial encounter; Y93.89 Activity, other specified; Y92.098 Other place in other non-institutional residence as the place of occurrence of the external cause; Y99.8 Other external cause status; Y90.8 Blood alcohol level of 240 mg/100 ml or more; Z51.81 Encounter for therapeutic drug level monitoring; Z79.899 Other long term (current) drug therapy
CPT/HCPCS: 36415; 70450; 70486; 72125; 80048; 80076; 80307; 83735; 84702; 85025; 85610; 99285

== ENCOUNTER 2024-08-14 13:58 | Outpatient (AMB) | payer MEDICAID, SELFPAY ==
[2024-08-14 14:15] VITALS: BMI 29.5
--- NOTE | 2024-08-14 14:15 | MHC.OFFVIS ---
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 Patient was seen by her PCP who referred to orthopedics. Patient reports constant pain has been present for month and has not had any previous tx. States feels as if a muscle is being pulled in her shoulder that travels up to the neck. She has numbness an tingling that starts in her forearm and goes down to her hand. Finds little relief with motrin. Allergies aspirin [ASA] Allergy (Verified 08/14/24 14:17) Swelling iodine Allergy (Verified 08/14/24 14:17) Rash kiwi Allergy (Verified 08/14/24 14:17) Rash NSAIDS (Non-Steroidal Anti-Inflamma Allergy (Verified 08/14/24 14:17) Rash Penicillins Allergy (Verified 08/14/24 14:17) Swelling shrimp Allergy (Verified 08/14/24 14:17) Swelling Sulfa (Sulfonamide Antibiotics) Allergy (Verified 08/14/24 14:17) Rash Medication List - Last Reconciled 08/14/24 by Adelso Salazar PA-C albuterol sulfate 90 mcg/actuation 2 puffs inhalation QID PRN benzonatate 100 mg PO TID PRN budesonide-formoterol 80-4.5 mcg/actuation (Symbicort) 2 puffs inhalation clonazepam 1 mg PO QAM empagliflozin (Jardiance) 25 mg PO QAM gabapentin 300 mg PO TID glimepiride 2 mg PO ibuprofen 800 mg PO Q8H PRN lidocaine 5% patches topical losartan 50 mg PO QAM montelukast 10 mg PO QAM omeprazole 40 mg PO DAILY ondansetron 4 mg PO Q8H PRN polyethylene glycol 3350 (Miralax) 17 grams PO DAILY prednisone 50 mg PO DAILY quetiapine 50 mg PO BEDTIME sucralfate 1 g PO QID zolpidem 5 mg PO BEDTIME HPI HPI 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 She was seen by her PCP who referred her to our office. She states her pain feels as if a muscle is being pulled in her shoulder that radiates up to her neck. Her pain is aggravated with holding on to the handrail while going upstairs. She also experiences numbness and tingling in her forearm that goes down to her hand. She has not had any treatment in the past. She finds mild relief with Motrin. [facility] Medical History Asthma Social History (Updated 08/14/24 @ 14:20 by Raya Riddle [facility]) Alcohol intake: current Alcohol intake frequency: 3 or more drinks per day Alcohol type: hard liquor Patient Tobacco Use Status: Never used Tobacco Substance Use Type: Marijuana Current occupational status: unemployed Current occupation: right hand dominant Review of Systems Const All systems reviewed & are unremarkable except as noted in HPI and below Physical Exam Vital Signs: BMI result Body Mass Index 29.5 Const General: cooperative, healthy appearing, comfortable, no acute distress, well developed and alert Orientation/consciousness: patient oriented x3 HEENT Head: Yes normal to inspection, Yes normocephalic and Yes atraumatic Eyes General: appearance normal, both eyes and all related structures Resp Effort & Inspection: normal respiratory effort and able to speak in complete sentences Cardio Rate: regular rate Peripheral pulses: Peripheral pulses 2+ throughout GI Palpation (GI): Soft to palpation Skin Lesions: no lesions Rashes: no rashes Neuro General: patient oriented x3 Extrem Other: Right shoulder: Normal to inspection. Tenderness over the bicipital groove and along the deltoid region of the shoulder. Forward flexion to 175, external rotation to 90, internal rotation to S1. 5/5 RTC strength. Positive Jaramillo and O?Patel?s. NVI. ? Results Reviewed Results Reviewed: xrays of the right shoulder obtained on 07/01/24 are negative for acute fracture or dislocations. Assessment & Plan Assessment & Plan (1) Biceps tendonitis on right: Code(s): M75.21 - Bicipital tendinitis, right shoulder Category: Medical Plan We discussed options which include PT, NSAIDs and injections. The patient will defer on the injection today and proceed with PT and NSAIDs. If symptoms persist, she will contact me for an injection, otherwise, PRN. Orders: Orders PT Evaluation and Treatment Today M75.21 - Bicipital tendinitis, right shoulder Patient Instructions: Scribed for Ta-Maricruz Meuse, PA-C, by Drew Diaz medical records coder, on 08/14/2024 at 2:15 PM EST.? I, Adelso Salazar PA-C, have personally reviewed and agree with the information entered by the scribe. Coding Level of Care Code New Pt Level 3 (00781) Complex EM visit Add On G2211 Diagnoses Biceps tendonitis on right M75.21
== END 2024-08-14 14:47 | disposition home or self-care (01) ==
PROVIDERS: Visit Provider Physician Assistant
DX: M75.21 Bicipital tendinitis, right shoulder (principal)
CPT/HCPCS: 99203

== ENCOUNTER → 2024-08-14 13:58 | Outpatient (BNVA) | payer MEDICAID, SELFPAY | PROVIDERS: Visit Provider Physician Assistant | DX: M75.21 Bicipital tendinitis, right shoulder (principal) | CPT/HCPCS: 99212 ==